=== PATIENT | male | born 1980 | race Caucasian/White ===

== ENCOUNTER 2023-11-05 07:34 | Observation (INO) ==
--- NOTE | 2023-10-14 16:07 | PAT Medication Instructions ---
Medication Instructions Date of Service October 14, 2023 Home Medications bupropion HCl 200 mg tablet,12 hr sustained-release (Wellbutrin SR) 200 mg PO BID meloxicam submicronized 10 mg capsule 10 mg PO QPM pregabalin 200 mg capsule (Lyrica) 200 mg PO BID acetaminophen 650 mg tablet,extended release 1,300 mg PO Q12H albuterol sulfate 90 mcg/actuation aerosol inhaler 2 puff inhalation UD PRN ascorbic acid (vitamin C) 1,000 mg tablet (Vitamin C) 1 g PO QPM cholecalciferol (vitamin D3) 125 mcg (5,000 unit) tablet (Vitamin D3) 250 mcg PO Q7D dextroamphetamine-amphetamine 10 mg tablet 10 mg PO TID dextroamphetamine-amphetamine ER 30 mg 24hr capsule,extend release (Adderall XR) 30 mg PO QAM fluticasone propionate 110 mcg/actuation HFA aerosol inhaler 1 puff inhalation TID PRN multivitamin 1 tab PO QAM zinc 50 mg capsule 50 mg PO HS ASK your surgeon for instructions meloxicam submicronized 10 mg capsule 10 mg PO QPM DO NOT take the morning of surgery cholecalciferol (vitamin D3) 125 mcg (5,000 unit) tablet (Vitamin D3) 250 mcg PO Q7D dextroamphetamine-amphetamine 10 mg tablet 10 mg PO TID dextroamphetamine-amphetamine ER 30 mg 24hr capsule,extend release (Adderall XR) 30 mg PO QAM multivitamin 1 tab PO QAM Take morning of surgery With a small sip of water, OTHERWISE NOTHING TO EAT OR DRINK AFTER MIDNIGHT: bupropion HCl 200 mg tablet,12 hr sustained-release (Wellbutrin SR) 200 mg PO BID pregabalin 200 mg capsule (Lyrica) 200 mg PO BID acetaminophen 650 mg tablet,extended release 1,300 mg PO Q12H albuterol sulfate 90 mcg/actuation aerosol inhaler 2 puff inhalation UD PRN(use if needed; please bring with you to hospital day of surgery if possible) fluticasone propionate 110 mcg/actuation HFA aerosol inhaler 1 puff inhalation TID PRN(if needed) Take evening before surgery bupropion HCl 200 mg tablet,12 hr sustained-release (Wellbutrin SR) 200 mg PO BID pregabalin 200 mg capsule (Lyrica) 200 mg PO BID acetaminophen 650 mg tablet,extended release 1,300 mg PO Q12H ascorbic acid (vitamin C) 1,000 mg tablet (Vitamin C) 1 g PO QPM dextroamphetamine-amphetamine 10 mg tablet 10 mg PO TID fluticasone propionate 110 mcg/actuation HFA aerosol inhaler 1 puff inhalation TID PRN(if needed) zinc 50 mg capsule 50 mg PO HS Other Notes If you have any questions please call us at [phone] or [phone] or [phone] or [phone]
--- NOTE | 2023-10-19 12:41 | Anesthesiology Consultation ---
Date of Service October 19, 2023 Assessment & Plan (1) Encounter for pre-operative examination: - Outpatient joint assessment: Patient is currently scheduled for inpatient pathway. If re-evaluated and patient/surgeon requests outpatient pathway, patient is acceptable candidate for outpatient joint program from anesthesia standpoint pending surgeon's office assessment of pt motivation/support/completion of same day joint program preop requirements. Chart Review Chart Review: Acceptable Risk for Surgery and Patient seen in Pre Admission Testing Teaching & Discussion Pre-Anesthesia Teaching/Discussion Notes: Instructed NPO after midnight before surgery, except medications with 15 cc of water. Medication instructions provided according to the PAT guidelines. History Surgery Operation Date: 11/05/23 09:10 Proposed Procedures p Right Anterior Total Hip Arthroplasty - Dae Cazares DO Height/Weight Height: 6 ft 2 in Weight: 104.4 kg Allergies Allergy/AdvReac Type Severity Reaction Status Date / Time No Known Drug Allergies Allergy Unknown Verified 10/14/23 14:20 Medications Home Medications Medication Instructions Recorded Confirmed Last Taken bupropion HCl 200 mg tablet,12 hr 200 mg PO BID 11/27/21 10/14/23 Unknown sustained-release (Wellbutrin SR) meloxicam submicronized 10 mg 10 mg PO QPM 11/27/21 10/14/23 Unknown capsule pregabalin 200 mg capsule (Lyrica) 200 mg PO BID 11/27/21 10/14/23 Unknown acetaminophen 650 mg 1,300 mg PO Q12H 10/14/23 10/14/23 Unknown tablet,extended release albuterol sulfate 90 mcg/actuation 2 puff inhalation UD PRN Shortness 10/14/23 10/14/23 Unknown aerosol inhaler Of Breath ascorbic acid (vitamin C) 1,000 mg 1 g PO QPM 10/14/23 10/14/23 Unknown tablet (Vitamin C) cholecalciferol (vitamin D3) 125 250 mcg PO Q7D 10/14/23 10/14/23 Unknown mcg (5,000 unit) tablet (Vitamin D3) dextroamphetamine-amphetamine 10 10 mg PO TID 10/14/23 10/14/23 Unknown mg tablet dextroamphetamine-amphetamine ER 30 mg PO QAM 10/14/23 10/14/23 Unknown 30 mg 24hr capsule,extend release (Adderall XR) fluticasone propionate 110 1 puff inhalation TID PRN 10/14/23 10/14/23 Unknown mcg/actuation HFA aerosol inhaler Shortness Of Breath multivitamin 1 tab PO QAM 10/14/23 10/14/23 Unknown zinc 50 mg capsule 50 mg PO HS 10/14/23 10/14/23 Unknown Wheeled Walker #1 ea 10/19/23 10/19/23 Unknown Additional Notes: Patient indicated that ibuprofen was to be held 1 day prior to surgery. I contacted Katy with surgeon's office who advised that it needs held 7 days before surgery. Patient was made aware of holding ibuprofen 7 days before surgery and it was written on provided medication instructions. He verbalized understanding and agreement, denied questions or concerns. Past Medical History Medical History (Updated 10/19/23 @ 13:08 by Rika Fenton PA-C) GERD (gastroesophageal reflux disease) infrequent Asthma controlled, stable per pt; inh prn-last rescue inhaler use 3 weeks ago Anxiety Depression ADHD Patient denies h/o stroke, seizures, heart attack, heart failure, DM, HTN, blood clots/DVTs or blood transfusions. Exercise / Class Metabolic Activity II 4-5 Yardwork/Stairs/Walk up hill (denies chest discomfort or shortness of breath with 1 FOS) Past Family History Family History Father Asthma Cancer Prostate cancer Mother Cancer Breast cancer Other No family history of allergies No family history of bleeding disorder Denies family history of Hearing loss Heart disease Hypertension Stroke Past Surgical History Surgical History [place] teeth extracted x3 History of colonoscopy Past Anesthesia History No Hx of Anesthesia Complications and No Family Hx of Anesthesia Complications History of PONV No Hx of PONV and No Hx of Motion Sickness Social History Smoking Status: Current every day smoker (-advised) Smoking cigarettes per day: 10-20 Do You Dip or Chew Tobacco: No Hx Alcohol Use: Yes Alcohol type: beer and hard liquor Alcohol Intake Frequency Comment: twice per week Hx Substance Use: Yes substance use type: marijuana Last Used Substance Other:: very occasionally, most recent 10/14/23-advised Review of Systems Snoring, denies witnessed apneas. Patient denies chest pain, shortness of breath, dyspnea on exertion, fever, ch ills, cough, wheezing, or palpitations. Physical Exam Vital Signs Vitals BP 119/79 P 80 TEMP 98.5 SP02 96% on RA RESP 18 Physical Patient resting comfortably in chair in no acute distress, alert and oriented, responding appropriately throughout visit Full cervical extension range of motion without pain TMD 3.5 finger breadths Mallampati Score 3 Dentition: intact, denies chipped or loose teeth, caps/crowns, implants or bridges Lungs: normal respiratory effort. Good air movement, clear throughout to auscultation, no adventitious breath sounds Cardiac: regular rate and rhythm, no murmurs noted Carotid arteries: negative bruit bilat Lab Results Anesthesia Preop Results Results Anesthesia Widget: WBC 6.03 K/ul (4.8-10.8) 10/19/23 Hgb 16.2 g/dl (14.0-18.0) 10/19/23 Hct 45.6 % (42.0-52.0) 10/19/23 Plt 255 K/uL (130-400) 10/19/23 Na 139 mmol/L (136-145) 10/19/23 K 4.0 mmol/L (3.5-5.1) 10/19/23 Cl 105 mmol/L (98-107) 10/19/23 CO2 28 mmol/L (21-32) 10/19/23 BUN 16 mg/dl (6-23) 10/19/23 Creat 0.92 mg/dl (0.6-1.4) 10/19/23 Glucose Level 83 mg/dl (70-99(Fasting)) 10/19/23 PT 10.5 Seconds (9.0-12.0) 10/19/23 PTT 28 Seconds (21-31) 10/19/23 INR 1.0 (0.9-1.1) 10/19/23 Blood Type A Positive 10/19/23 Antibody Screen NEGATIVE 10/19/23 Testing Electrocardiogram Date: 10/19/23 Sinus rhythm with occasional PVCs, rate 69 bpm Chest X-Ray Date: 10/19/23 No active disease in the chest.
[~2023-11-05 07:34] MED LIST: ACETAMINOPHEN 500 MG TAB PO SCH; BUPIVACAINE 0.5 % 5 MG/1 ML PF 10ML VIAL ONE; FAMOTIDINE 20 MG TAB PO SCH; GABAPENTIN 900 MG DOSE PO SCH; Ketorolac (*for OR use only*) 30 MG, dexAMETHasone 4 MG, KETAMINE HCL (**OR use only) 1... INFIL SCH; LIDOCAINE 2% 2 ML VIAL/AMP(20MG/ML) INFIL ONE; LR 500ML BOLUS, THEN 15ML/HR IV SCH; LR 60ML/HR IV SCH; MIDAZOLAM HCL 1 MG/ML 2ML VIAL ONE; PROPOFOL IV EMULSION 10 MG/ML 20 ML VIAL IV ONE; TRANEXAMIC ACID 1,000 MG **IV Intra-op IV SCH; TRANEXAMIC ACID 1,000 MG **IV Pre-op IV SCH; ceFAZolin 2000MG 2,000 MG/15 ML SYR IV SCH; dexAMETHasone 4 MG TAB PO SCH; fentaNYL citrate PF 100 MCG/2 ML VIAL ONE
[2023-11-05] MEDS ORDERED: ePHEDrine sulfate 50 MG/5 ML SYR ONE (07:38)
--- NOTE | 2023-11-05 08:04 | History & Physical Bridge Note ---
Date of Service November 05, 2023 History & Physical Bridge Note I have examined the patient, reviewed the History & Physical and in the interval since the performance of the History & Physical I have noted the following changes of clinical significance: no changes noted
[2023-11-05] MEDS ORDERED: ORTHO JOINT ANESTHETIC ONE (08:29)
[2023-11-05] MEDS ORDERED: ATROPINE SULFATE 0.1 MG/ML 10ML SYR IV PRN (08:40)
[2023-11-05] MEDS ORDERED: fentaNYL citrate PF 100 MCG/2 ML VIAL IV PRN (08:40)
[2023-11-05] MEDS ORDERED: ePHEDrine sulfate 50 MG/ML AMP IV PRN (08:40)
[2023-11-05] MEDS ORDERED: ONDANSETRON INJ 2 MG/ML 2 ML VIAL IV PRN ×2 (08:40→12:02)
[2023-11-05] MEDS ORDERED: fentaNYL citrate PF 100 MCG/2 ML VIAL ONE (09:18)
--- NOTE | 2023-11-05 10:32 | Operative Report ---
PG Post Operative Report Pre & Post Diagnosis Operation Date: 11/05/23 09:00 Pre-Op Diagnosis: Right Hip Degenerative Joint Disease Post-Op Diagnosis: Right Hip Degenerative Joint Disease I identified the patient and participated in the time-out.: Yes Procedure Operation Date: 11/05/23 09:00 Actual Procedures p Right Anterior Total Hip Arthroplasty - Dae Cazares DO Surgeon Dae Cazares DO Ductfixing Plumber Dae Dow PA-C Estimated Blood Loss 200 Findings Consistent with Post-Op Diagnosis Specimens Right femoral head Description of Procedure Implants used I used a ZimmerBiomet total hip arthroplasty system with a size 3 high offset Avenir Complete stem, a 52 mm G7 cup with a 25mm screw, an E1 polyethylene line r, a 36 mm ceramic head with a +3.5 neck. Chad arrived at the hospital for the above procedure. He was seen in the preoperative holding area and the operative extremity was identified and signed. He was given a spinal anesthetic, a preoperative antibiotic, and TXA. He was then taken back to the operating room and laid on the table in the supine position. He was given basic sedation. The operative leg was secured to a Puristst leg positioner. The hip was then prepped and draped in sterile fashion. A timeout was done and the patient and the operative extremity was properly identified. An anterior approach was used. Dissection was taken down through the fascia and the tensor muscle belly was retracted laterally and the rectus was retracted medially. The circumflex vessels were identified and ligated. The capsule was then incised and tagged for later repair. The femoral neck was then cut and the femoral head was removed. The acetabulum was exposed. Time was spent doing a complete circumferential labral release. Sequential reaming of the acetabulum up to a size 51 reamer was done. Final reamings were done under fluoroscopy to ensure appropriate version. A Biomet 52 3 mm G7 cup was then impacted into place. A single 25 mm screw was placed. The E1 polyethylene liner was then snapped into place. Surrounding soft tissues were then injected with 100 cc of an orthopedic pain control cocktail. The proximal femur was then exposed. Sequential broaching up to a size 3 broach was done. Off that broach a size 36 head with a +3.5 neck was trialed. The hip was reduced and fluoroscopic images showed anatomic alignment of the implants in acceptable length. The broach was removed. The final size 3 high offset Avenir Complete stem was then impacted into place. A ceramic 36 mm head with a +3.5 neck was then impacted onto the stem and the hip was reduced. Final fluoroscopic images showed anatomic alignment of the hip. The capsule was then closed with #1 Vicryl suture. A dilute betadyne lavage was then done for 3 minutes. The joint was then irrigated with normal saline solution. The fascia was closed with #1 PDS suture. Skin was closed with 2-0 Vicryl, ghazal, and a Silverlon dressing. He was then transferred to a hospital bed and taken to the post anesthesia care unit in stable condition. He tolerated the procedure well. Dae Dow PA-C, was present for the entire procedure. He was critical for patient positioning, prepping, draping, retraction exposure, wound closure and application of sterile dressing. I attest to the content of the Intraoperative Record and any orders documented therein. Any exceptions are noted below.
--- NOTE | 2023-11-05 11:00 | XRay Report ---
XR hip 1V RT w pelvis CLINICAL HISTORY: Postoperative evaluation. COMPARISON: Right hip radiographs October 19, 2023. FINDINGS: Alignment of the total right hip arthroplasty is anatomic. There is no periprosthetic frac ture or unexpected radiopaque foreign body. There are skin ghazal. IMPRESSION: Expected findings following total right hip arthroplasty. ACT 112: Negative or not required by law. Electronically signed by: Elliot Albright M.D. 11/05/2023 10:59 AM
--- NOTE | 2023-11-05 11:01 | Fluoroscopy Report ---
FL hip RT 1V CLINICAL HISTORY: RIGHT ANTERIOR HIP COMPARISON STUDY: None. FLUOROSCOPY TIME: 19 seconds FLUOROSCOPY IMAGES: 1 Ka,r: 2.9 mGy FINDINGS: There is a right total hip arthroplasty. The hardware appears intact. No fracture or disloc ation. IMPRESSION: Fluoroscopic assistance as above. ACT 112: Negative or not required by law. Electronically signed by: Roel Monae M.D. 11/05/2023 11:00 AM
--- NOTE | 2023-11-05 11:46 | Anesthesiology Progress Note ---
Date of Service November 05, 2023 Anesthesia Post Procedure Vital Signs Vital Signs: Temp Pulse Resp BP BP Pulse Ox O2 Del Method 11/05/23 11:30 64 20 103/65 99 Room Air 11/05/23 11:15 63 17 111/70 97 Room Air 11/05/23 11:05 97.5 F L 58 L 18 110/64 97 Room Air 11/05/23 10:55 62 17 116/53 L 98 Room Air 11/05/23 10:45 63 16 118/61 97 Oxymask 11/05/23 10:37 96.8 F L 66 14 113/76 97 Oxymask 11/05/23 07:58 98.1 F 73 18 145/83 H 97 Room Air O2 Flow Rate 11/05/23 11:30 11/05/23 11:15 11/05/23 11:05 11/05/23 10:55 11/05/23 10:45 6 11/05/23 10:37 6 11/05/23 07:58 Transfer of Care Handoff Completed per policy Notes Mental Status: alert / awake / arousable and participated in evaluation Patient Amnestic to Procedure: Yes Nausea / Vomiting: adequately controlled Pain: adequately controlled Airway Patency, RR, SpO2: stable & adequate BP & HR: stable & adequate Hydration State: stable & adequate Neuraxial Anesthesia: was administered and sensory block is resolving Anesthetic Complications: no major complications apparent and Pt Satisfied with anesthetic care
[2023-11-05] MEDS ORDERED: INFLUENZA VIRUS QUADRIVALENT VACCINE (IIV4) 0.5 ML SYR IM ONE (11:53)
[2023-11-05] MEDS ORDERED: METOCLOPRAMIDE HCL INJ 5 MG/ML 2 ML VIAL IV PRN (12:02)
[2023-11-05] MEDS ORDERED: ALBUTEROL HFA 8 GM INHALER INH PRN (12:02)
[2023-11-05] MEDS ORDERED: MAGNESIUM HYDROXIDE SUSP 30 ML UDC PO PRN (12:02)
[2023-11-05] MEDS ORDERED: NALOXONE HCL 0.4 MG/1 ML VIAL/CARP IV PRN (12:02)
[2023-11-05] MEDS ORDERED: FLUTICASONE HFA 110MCG INHALER INH PRN (12:02)
[2023-11-05] MEDS ORDERED: bisacodyL 10 MG SUPP PR PRN (12:02)
[2023-11-05] MEDS: SODIUM CHLORIDE 0.9% 1,000 ML IV SCH ×2 (12:51→22:54)
[2023-11-05] MEDS: KETOROLAC 30 MG/ML VIAL IV SCH ×2 (12:51→17:50)
[2023-11-05] MEDS: AMPHETAMINE ASP/SULF/DEXTRAMPH 10 MG TAB PO SCH ×2 (13:06→16:35)
[2023-11-05] MEDS: ACETAMINOPHEN 500 MG TAB PO SCH ×2 (14:10→22:50)
[2023-11-05] MEDS: ceFAZolin 2000MG 2,000 MG/15 ML SYR IV SCH (16:19)
[2023-11-05] MEDS: DOCUSATE SODIUM 100 MG CAP PO SCH (20:28)
[2023-11-05] MEDS: oxyCODONE HCL IR 5 MG TAB (IMMEDIATE RELEASE) PO PRN (20:28)
[2023-11-05] MEDS: PREGABALIN 100 MG CAP PO SCH (20:28)
[2023-11-05] MEDS: ASPIRIN 81 MG ECTAB PO SCH (20:29)
[2023-11-05] MEDS: buPROPion SR 100 MG TABCR PO SCH (20:29)
[2023-11-05] MEDS ORDERED: SENNA 8.6 MG TAB PO SCH (21:00)
[2023-11-05] MEDS: HYDROmorphone INJ 0.5 MG/0.5 ML SYR IV PRN (22:50)
[2023-11-06] MEDS: ceFAZolin 2000MG 2,000 MG/15 ML SYR IV SCH (01:03)
[2023-11-06] MEDS: KETOROLAC 30 MG/ML VIAL IV SCH ×2 (01:03→05:03)
[2023-11-06] MEDS: oxyCODONE HCL IR 5 MG TAB (IMMEDIATE RELEASE) PO PRN ×2 (03:54→08:29)
[2023-11-06] MEDS: HYDROmorphone INJ 0.5 MG/0.5 ML SYR IV PRN (05:02)
[2023-11-06] MEDS: ACETAMINOPHEN 500 MG TAB PO SCH (05:03)
--- NOTE | 2023-11-06 07:12 | Orthopedic Progress Note ---
Date of Service November 06, 2023 Assessment & Plan (1) Status post right hip replacement: Overall he is doing very well. Is not having much pain in the right hip. He will be seen by physical therapy today for ambulation and range of motion exercises. He is on aspirin for DVT prophylaxis. He can be discharged home later today. He will follow-up orthopedics in 2 weeks. Tobin Bonilla was seen and examined at bedside this morning. Overall is doing very well. Is not having much pain in the right hip. He has been up and ambulating to the bedside chair. He has no complaints.. Review of Systems All systems reviewed & are unremarkable except as noted in HPI & below. Physical Exam On physical examination the right hip, the dressing is clean and dry. His leg is out full extension. He is active dorsiflexion plantarflexion of the right ankle.. Results & Data Results & Data Laboratory Results . Diagnostic Findings Postoperative x-rays of the right hip show the prosthesis to be in anatomic alignment without any evidence of fracture, dyscrasia, or loosening.. PG Care Time/CCT Total # of Minutes Spent Total Time Spent with Patient: Total time spent is greater than 50% in coordination of care (as documented) at patient's floor/unit and/or counseling patient: Coding Level of Care Code 31246 Post Operative Follow-Up Diagnoses Status post right hip replacement Z96.641
--- NOTE | 2023-11-06 07:13 | Discharge Summary ---
Date of Service November 06, 2023 Principal Diagnosis Same as "Discharge Diagnosis" noted below under Discharge Instructions. Discharge Exam On physical examination the right hip, the dressing is clean and dry. His leg is out full extension. He is active dorsiflexion plantarflexion of the right ankle.. Discharge Data Procedures Performed Operation Date: 11/05/23 09:00 Actual Procedures p Right Anterior Total Hip Arthroplasty - Dae Cazares DO Ordered Studies 11/05/23 09:00 FL hip RT 1V Routine Hospital Course (1) Status post right hip replacement: On November 05, 2023 Chad arrived at [facility] and underwent a right anterior hip replacement without complication. He had a spinal anesthetic. Postoperatively he was started on aspirin for DVT prophylaxis and transferred to the general orthopedic floors. His hospital course was uneventful. On postop day #1, his vital signs were stable and his pain was well-controlled. He was able to participate well with physical therapy doing ambulation and range of motion exercises. He was then discharged home. He will follow-up with orthopedics in 2 weeks. PG Care Time/CCT Total # of Minutes Spent Total Time Spent with Patient: Total time spent is greater than 50% in coordination of care (as documented) at patient's floor/unit and/or counseling patient: Discharge Plan Discharge Items Patient Disposition: Home - Self-Care Reason For Visit: Right Hip Degenerative Joint Disease Discharge Diagnosis: Right hip replacement Activity: Per Instructions section Non-emergency contact: Surgeon Call non-emergency contact if: your wound has increased redness and your wound has increased drainage Follow-up/Referrals: Angelito Guo [Primary Care Provider] - Diet: Regular Addtl Attending Provider Instructions: Activity and Therapy Recommendations: * If you are using [facility] then therapy will be provided at your home until they feel you have accomplished all of your goals. * If you are using [facility] then Physical Therapy will be provided until they feel you are ready to start Outpatient Physical Therapy. * If you are not using home therapy then Outpatient Physical Therapy should start about 3-5 days from your day of surgery. Therapy will last about 6-10 weeks * You were shown a series of exercises in the hospital. Do these exercises three times each day including the exercises you were shown in physical therapy. * Get up and walk several times each day.~ For the first four weeks, try not to stand or walk for more than one hour at a time. If you do stand or walk for more than one hour, you will not hurt anything, but your leg will likely swell.~~ * As you feel comfortable, you may change from the walker or crutches to a cane and~then to independent walking. Medications: * Narcotic You will likely be sent home from the hospital with a prescription for the narcotic pain medication that worked best throughout your stay. * Cefadroxil-take the antibiotic twice a day for 10 days to help prevent infection. * Aspirin Most patients will be required to take Aspirin 81mg twice a day for 6 weeks after surgery. This is obtained [id number] and a prescription is not necessary. * Other medications may be prescribed for specific circumstances. If you have any questions, please call the office at . * Resume previous home medications unless otherwise instructed TEDs/Elastic Stockings: The white elastic stockings help limit swelling and prevent blood clots from forming in your legs. The more you wear them, the more they work. Wear them for six weeks. Dressing Care: Leave the Silverlon dressing in place for 7 days. After 7 days you may remove the dressing. If the incision is not draining then you may leave the ghazal open to air. If there is a little bit of drainage or if the ghazal are getting stuck on your clothing then cover the incision with a dry dressing. The ghazal will be removed at your 2 week follow-up appointment. Showering: You may shower with the Silverlon dressing in place. Do not let the shower spray hit the dressing directly. Pat the Silverlon dressing dry. If the dressing becomes wet underneath, then simply remove the dressing. Keep the incision dry until you are 7 days out from the day of surgery. After 7 days you may remove the Silverlon dressing and shower with the ghazal exposed. Let soapy water run over the ghazal and pat them dry. Do not scrub or soak the incision. Things To Watch For: * Drainage from the incision site that occurs more than one week after your surgery. * Increased redness at the incision site. * Fever above 102 degrees Fahrenheit. * Unusual chest pain or shortness of breath. * Call [facility] at with any of the above problems Follow-Up Visit: Follow-up with Dr. Cazares's PA (Dae Dow) 2-3 weeks after your day of surgery. He will remove your ghazal and answer any questions. If you have any additional questions or concerns, Dr Cazares is usually in the office at the same time and will be available An appointment was probably scheduled when you signed-up for surgery in the office. If you have any questions call Office Instructions: More detailed instructions as well as Frequently Asked Questions were provided in a folder by our office when you signed-up for surgery. Please review these instructions when you get home. If you have any further questions or concerns, please feel free to call the office at [phone] Pending Studies at Discharge: No Stand-Alone Forms: My [facility] Medications and DC Order Prescriptions: New oxycodone 5 mg Tablet 5 mg PO Q4H PRN (Reason: pain) Qty: 30 0RF aspirin 81 mg Tablet,Delayed Release (Dr/Ec) 81 mg PO BID 42 Days Qty: 84 0RF cefadroxil 500 mg capsule 500 mg PO BID 10 Days Qty: 20 0RF Continued pregabalin [Lyrica] 200 mg capsule 200 mg PO BID bupropion HCl [Wellbutrin SR] 200 mg tablet sustained-release 12 hr 200 mg PO BID meloxicam submicronized 10 mg capsule 10 mg PO QPM (DME) Becky Lopez [facility] [place] See Rx Instructions .MEDSUPPLY Qty: 1 0RF Rx Instructions: As directed dextroamphetamine-amphetamine 10 mg tablet 10 mg PO TID Patient Comments: usually only takes 1 tab QAM and 1 tab QPM (early afternoon) Rx Instructions: may take up to TID if necessary albuterol sulfate 90 mcg/actuation HFA aerosol inhaler 2 puff INHALATION UD PRN (Reason: Shortness Of Breath) Patient Comments: uses a few times per week dextroamphetamine-amphetamine [Adderall XR] 30 mg capsule,extended release 24hr 30 mg PO QAM fluticasone propionate 110 mcg/actuation Hfa Aerosol Inhaler 1 puff INHALATION TID PRN (Reason: Shortness Of Breath) Patient Comments: rare use multivitamin Tablet 1 tab PO QAM ascorbic acid (vitamin C) [Vitamin C] 1,000 mg Tablet 1 g PO QPM acetaminophen [Tylenol Arthritis] 650 mg Tablet Extended Release 1,300 mg PO Q12H zinc 50 mg Capsule 50 mg PO HS cholecalciferol (vitamin D3) [Vitamin D3] 125 mcg (5,000 unit) Tablet 250 mcg PO Q7D Discharge Orders: Discharge Order (Routine); Ordered 11/06/23 Ordered By: Dae Cazares Admission Data Admit Date/Time: 11/05/23 10:36 Attending Provider: Dae Cazares Admit Provider: Dae Cazares Primary Care Provider: Angelito Guo
[2023-11-06] MEDS ORDERED: dexAMETHasone 4 MG TAB PO SCH (08:00)
[2023-11-06] MEDS: buPROPion SR 100 MG TABCR PO SCH (08:27)
[2023-11-06] MEDS: AMPHETAMINE ASP/SULF/DEXTRAMPH 10 MG TAB PO SCH (08:28)
[2023-11-06] MEDS: PREGABALIN 100 MG CAP PO SCH (08:28)
[2023-11-06] MEDS: ASPIRIN 81 MG ECTAB PO SCH (08:29)
[2023-11-06] MEDS: DOCUSATE SODIUM 100 MG CAP PO SCH (08:30)
[2023-11-06] MEDS ORDERED: MULTIVITAMIN TAB PO SCH (09:00)
[2023-11-06] MEDS ORDERED: DEXTROAMPHETAMINE/AMPHETAMINE ER 10 MG CAP PO SCH ×2 (09:00)
[2023-11-06] MEDS ORDERED: AMPHETAMINE ASP/SULF/DEXTRAMPH ER 20 MG CAP PO SCH ×2 (09:00)
== END 2023-11-06 11:14 | disposition home or self-care (01) ==
LOC: ASU 07:34 → 3E 07:34